=== PATIENT | male | born 1980 | race Caucasian/White ===

== ENCOUNTER 2016-12-20 22:48 | Emergency (ER) | payer OTHER ==
--- NOTE | ~2016-12-20 | EKG ---
PATIENT: GER COREAS UNIT #: [id number] Ventricular Rate: 80 BPM Atrial Rate: 80 BPM P-R Interval: 134 ms QRS Duration: 110 ms Q-T Interval: 364 ms QTC Calculation(Bezet): 419 ms P [place]: 29 degrees Calculated T [place]: 28 degrees Diagnosis Line: Normal sinus rhythm Diagnosis Line: Possible Anterior infarct , age undetermined Diagnosis Line: Abnormal ECG Diagnosis Line: No previous ECGs available Diagnosis Line: Confirmed by PAZ DAMON MD ([id number]) on Diagnosis Line: 12/22/2016 4:45:42 PM INTERPRETING MD: NELSON LEE
--- NOTE | ~2016-12-20 | CT71 ---
[facility] A Service of [facility] RADIOLOGY TEXT RESULTS PATIENT: GER COREAS LOCATION: SED : 78 UNIT #: [id number] AGE: [address]: Juan R Pelaez MD SEX: M ORDER DR: [id number] [place] [address] [id number] E MR#: [id number] Acc #: [id number] NAME: GER COREAS : 1980 SEX: M STUDY DATE/TIME: 12/21/2016 00:14 UNIT: SED ROOM: STUDY DESCRIPTION: CT Head Wo Contrast Attending Physician: Juan R Pelaez M.D. Ordering Physician: Juan R Pelaez M.D. Primary Care Physician: No Primary Care Physician MEDICAL IMAGING REPORT This report is preliminary unless electronic signature is present. EXAM Head CT, 12/21 at 0014 hours. INDICATIONS Pain in the right arm with headache that started tonight. COMPARISON None. TECHNIQUE This CT exam was performed with one or more of the following radiation dose reduction techniques: automatic exposure control, adjustment of mA and/or kV according to patient size, and iterative reconstruction. FINDINGS Axial images were obtained from base to the vertex without contrast. Cavum septum pellucidum and cavum septum vergae are present. There is an old right basal ganglia infarct. No acute infarct or hemorrhage is seen. There are no masses. There is asymmetric dilatation of the anterior horn of the left lateral ventricle, which may be congenital or developmental. IMPRESSION No acute findings in the brain. There is an old right basal ganglia lacunar infarct. Dictated by... Mariano Meeks Jr., M.D. THIS IS AN ELECTRONICALLY VERIFIED REPORT Mariano Meeks Jr., M.D. at 12/21/2016 9:52 PM RLK/ray [facility] A Service of [facility] RADIOLOGY TEXT RESULTS PATIENT: GER COREAS LOCATION: SED : 79 UNIT #: [id number] AGE: [address]: Juan R Pelaez MD SEX: M ORDER DR: TD: 12/21/2016 07:47 JOB #: [id number] MEDICAL IMAGING REPORT Page 1 of 1
--- NOTE | ~2016-12-20 | CT16 ---
[facility] A Service of [facility] RADIOLOGY TEXT RESULTS PATIENT: GER COREAS LOCATION: SED : 79 UNIT #: [id number] AGE: [address]: Juan R Pelaez MD SEX: M ORDER DR: [id number] [place] [address] [id number] E MR#: [id number] Acc #: [id number] NAME: GER COREAS : 1980 SEX: M STUDY DATE/TIME: 12/21/2016 01:06 UNIT: SED ROOM: STUDY DESCRIPTION: CT Angio Chest for PE Attending Physician: Juan R Pelaez M.D. Ordering Physician: Juan R Pelaez M.D. Primary Care Physician: Primary Care Physician No MEDICAL IMAGING REPORT This report is preliminary unless electronic signature is present. EXAM Chest CTA, 12/21 at 01:06 INDICATION Intermittent chest pain for 2 days. Pain started in the right arm tonight. Elevated D-dimer. TECHNIQUE Axial images were obtained through the chest following IV contrast administration. 3-D reformats were obtained. This CT exam was performed with one or more of the following radiation dose reduction techniques: automatic exposure control, adjustment of mA and/or kV according to patient size, and iterative reconstruction. COMPARISON No comparison. FINDINGS No pulmonary embolism is identified. The aortic lumen is not well opacified but is grossly normal. No pleural or pericardial effusion is seen. No adenopathy. Ground-glass opacities in the lungs with a basilar predominance are noted. This may reflect mild pulmonary edema. Pneumonitis is a differential consideration. The upper abdomen shows scarring in the lower pole of the right kidney. IMPRESSION 1. No pulmonary embolism. 2. Ground-glass infiltrates in both lungs with a basilar predominance would suggest mild pulmonary edema although pneumonitis is a differential consideration. 3. Scarring in the right kidney. [facility] A Service [facility] RADIOLOGY TEXT RESULTS PATIENT: GER COREAS LOCATION: SED : [birth year] UNIT #: [id number] AGE: [address]: Juan R Pealez MD SEX: M ORDER DR: Dictated by... Mariano Meeks Jr., M.D. THIS IS AN ELECTRONICALLY VERIFIED REPORT Mariano Meeks Jr., M.D. at 12/21/2016 9:52 PM JAIME/saray TD: 12/21/2016 08:17 JOB #: [id number] MEDICAL IMAGING REPORT Page 1 of 1
[~2016-12-20 22:48] MED LIST: AMOXICILLIN PO; BACTRIM DS TABL1 TA2 PO; BENADRYL PO; DARVOCET-N 1001 TAB PO; DOLOBID500 MG PO; HYDROCODONE-APA1 T51 PO; KEFLEX500 M1 PO; MOBIC PO; NAPROXEN PO; PEN-VEE K PO; VALIUM10 MG PO; VICODIN 5/500 T1 TAB PO
[2016-12-20] MEDS ORDERED: NO MEDICATIONS (23:06)
[2016-12-20 23:38] LABS: POC - CKMB 1.4 ng/mL (0.0-7.9); POC - TROPONIN <0.05 ng/mL (<=0.05)
[2016-12-20 23:52] LABS: BASOPHIL% 0.2 % (0-2.5); EOSINOPHIL# 0.4 X10e3 (0-0.7); EOSINOPHIL% 3.5 % (0.0-7.0); HEMATOCRIT 49.3 % (38.0-50.0); HEMOGLOBIN 16.7 gm/dL (13.0-16.0); LYMPHOCYTE# 2.9 X10e3 (1.0-3.5); LYMPHOCYTE% 28.1 % (17.0-45.0); MEAN CELL VOLUME 88.5 FL (83-96); MEAN CORPUSCULAR HGB CONC 33.9 g/dL (30-36); MEAN PLATELET VOLUME 9.1 FL (6.5-11.5); MONOCYTE% 9.4 % (3.0-12.0); NEUTROPHIL# 6.2 X10e3 (1.5-7.1); NEUTROPHIL% 58.8 % (40-75); PLATELET COUNT 233 X10e3 (140-420); RED BLOOD COUNT 5.57 X10e (3.90-5.60); RED CELL DISTRIBUTION WIDTH 14.5 % (11.0-15.5); WHITE BLOOD COUNT 10.5 X10e3 (4.0-10.5)
[2016-12-20 23:54] LABS: DIFF IND NO
[2016-12-21 00:03] LABS: BILIRUBIN,TOTAL 0.8 mg/dL (0.2-2.0); BUN/CREATININE RATIO 17.77; CREATININE SERUM 0.9 mg/dL (0.6-1.4); GLOM FILT RATE Estimated 108.7 mL/min (>60); POTASSIUM 3.5 mmol/L (3.5-5.1); PROTEIN TOTAL SERUM 7.5 g/dL (6.0-8.3)
[2016-12-21 00:10] LABS: INR 1.1; PARTIAL THROMBOPLASTIN TIME 29.6 SECONDS (25.6-38.1)
== END 2016-12-21 02:55 | disposition home or self-care (01) ==
LOC: SED 22:48
PROVIDERS: Emergency Medicine
DX: R07.9 Chest pain, unspecified (principal); R51 Headache; F41.9 Anxiety disorder, unspecified; I10 Essential (primary) hypertension; E78.5 Hyperlipidemia, unspecified; F17.200 Nicotine dependence, unspecified, uncomplicated; Z88.8 Allergy status to other drugs, medicaments and biological substances
CPT/HCPCS: 36415; 70450; 71275; 80053; 82553; 83880; 84484; 85025; 85379; 85610; 85730; 93005; 96374; 96375; 99285; J0780; J1200; Q9967